=== PATIENT | male | born 1985 ===

== ENCOUNTER → 2016-09-02 | Outpatient (REF) ==
--- NOTE | 2016-09-02 14:01 | REP ---
Clinical: Chest pain . Comparison: None . Technique: PA and lateral. Findings: The mediastinum and cardiac silhouette are normal. The lung [place] are clear and without acute consolidation, effusion, or pneumothorax. The skeletal structures are intact and normal. Impression: 1. No acute cardiopulmonary process. Signed by Benito Dow MD 09/02/2016 01:52 P
== END ==
LOC: M SMT 11:20
PROVIDERS: ATTEND Internal Medicine
DX: Z00.00 Encounter for general adult medical examination without abnormal findings (principal)